=== PATIENT | male | born 1990 ===

== ENCOUNTER 2017-02-05 08:30 | Emergency (ER) | payer SELFPAY ==
[2017-02-05 08:37] VITALS: BP 135/84; PULSE 82; RESP 16; TEMP 98; O2SAT 97
[2017-02-05] MEDS ORDERED: Naproxen 550 mg Tab PO STA (08:56)
[2017-02-05] MEDS ORDERED: Naproxen 550 mg Tab PO ONE (09:16)
--- NOTE | 2017-02-05 09:24 | C.PDOC ---
History Of Present Illness 26-year-old male presents to the emergency department with complaints of left- lower back pain that started one week ago. 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 Time Seen by Provider: 02/05/17 08:39 Chief Complaint (Nursing): Back Pain History Per: Patient History/Exam Limitations: no limitations Onset/Duration Of Symptoms: Days Current Symptoms Are (Timing): Still Present Quality Of Discomfort: "Pain" Severity: Mild Associated Symptoms: denies: Incontinence, New Weakness, New Numbness Past Medical History Reviewed: Historical Data, Nursing Documentation, Vital Signs Vital Signs: Last Vital Signs Temp 98.0 F 02/05/17 08:33 Pulse 82 02/05/17 08:33 Resp 16 02/05/17 08:33 BP 135/84 02/05/17 08:33 Pulse Ox 97 02/05/17 12:26 - Medical History PMH: No Chronic Diseases Family History: States: No Known Family Hx - Social History Hx Alcohol Use: No Hx Substance Use: No Review Of Systems Except As Marked, All Systems Reviewed And Found Negative. Constitutional: Negative for: Fever, Chills Cardiovascular: Negative for: Chest Pain, Palpitations Respiratory: Negative for: Cough, Shortness of Breath Gastrointestinal: Negative for: Nausea, Vomiting, Abdominal Pain, Diarrhea Genitourinary: Negative for: Dysuria, Frequency, Incontinence, Hematuria Musculoskeletal: Positive for: Back Pain Skin: Negative for: Rash Neurological: Negative for: Weakness, Numbness, Dizziness Physical Exam - Physical Exam Appears: Well, Non-toxic, No Acute Distress Skin: Warm, Dry, No Rash Oral Mucosa: Moist Neck: Normal, Normal ROM, No Midline Cervical Tenderness, No Paracervical Tenderness, No Step Off Deformity, Supple Cardiovascular: Rhythm Regular Respiratory: Normal Breath Sounds, No Rales, No Rhonchi, No Wheezing Gastrointestinal/Abdominal: Normal Exam, Bowel Sounds, Soft, No Tenderness Back: No CVA Tenderness, No Vertebral Tenderness, Paraspinal Tenderness (left, lumbar.) Extremity: Normal ROM, No Pedal Edema, No Calf Tenderness Extremity: Bilateral: Atraumatic, Normal Color And Temperature, Normal ROM Neurological/Psych: Oriented x3 Gait: Steady ED Course And Treatment O2 Sat by Pulse Oximetry: 97 (RA) Pulse Ox Interpretation: Normal Progress Note: Patient given PO naprosyn and flexeril. Reevaluation Time: 09:25 Reassessment Condition: Improved (On reassessment, patient is resting comfortably and states he feels better, pain has improved. Patient ambulating normally in ED. He was given Rxs for Naprosyn and Flexeril, and instructed to follow up with PMD/clinic in 1-2 days. He understands he should return to ED if symptoms worsen.) Disposition Counseled Patient/Family Regarding: Diagnosis, Need For Followup, Rx Given - Disposition Referrals: [facility] [Outside] Disposition: HOME/ ROUTINE Disposition Time: 09:25 Condition: STABLE Additional Instructions: SEGUIMIENTO CON CONTRERAS DOCTOR / CLNICA EN 1-2 WANG USE LOS MEDICAMENTOS QUE ROX NECESARIOS DEVUELVA A LA DOUG DE EMERGENCIA SI LOS SNTOMAS EMPEORARAN Prescriptions: Cyclobenzaprine [Cyclobenzaprine HCl] 10 mg PO BID PRN #15 tab PRN Reason: Muscle Spasm Naproxen [Naprosyn Tab] 375 mg PO BID PRN #20 tab PRN Reason: pain Instructions: Acute Low Back Pain (ED) Forms: Work Excuse Print Language: HEBREW - POA Present On Arrival: None - Clinical Impression Clinical Impression: Low back pain - Scribe Statement The provider has reviewed the documentation as recorded by the Scribe Pat Soler All medical record entries made by the Scribe were at my direction and personally dictated by me. I have reviewed the chart and agree that the record accurately reflects my personal performance of the history, physical exam, medical decision making, and the department course for this patient. I have also personally directed, reviewed, and agree with the discharge instructions and disposition.
== END 2017-02-05 09:44 | disposition home or self-care (01) ==
LOC: C.ER 08:30
DX: M54.5 Low back pain (principal)

== ENCOUNTER 2017-04-13 00:41 | Emergency (ER) | payer OTHER ==
[2017-04-13 00:56] VITALS: BP 117/74; PULSE 94; RESP 20; TEMP 97.9; O2SAT 97
== END 2017-04-13 01:13 | disposition left against medical advice (07) ==
LOC: C.ER 00:41 → SUPCPDRO 00:41 → C.ER 01:13
DX: Z04.1 Encounter for examination and observation following transport accident (principal); Z02.9 Encounter for administrative examinations, unspecified